=== PATIENT | male | born 1980 | race Caucasian/White ===

== ENCOUNTER → 2017-02-18 | Outpatient (CLI) | payer BC ==
--- NOTE | 2017-02-18 12:55 | XR ---
EXAMINATION TYPE: XR abdomen 1V DATE OF EXAM: 02/18/2017 COMPARISON: NONE HISTORY: Pain TECHNIQUE: One view abdominal series FINDINGS: The osseous structures are intact. The bowel gas pattern is nonspecific. Calcifications in the pelvi s appear to be vascular. Retained fecal debris throughout the colon. IMPRESSION: 1. Nonspecific abdomen. Correlate for constipation.
[2017-02-18 13:04] LABS: Basophils # (A) 0.1 k/uL (0-0.2); Basophils % (A) 1 %; CH 29.7; CHCM 32.9; Eosinophils # (A) 0.1 k/uL (0-0.7); Eosinophils % (A) 3 %; HCT 42.1 % (39.0-53.0); HDW 2.44; HGB 13.9 gm/dL (13.0-17.5); Luc # (Auto) 0.11; Luc % (Auto) 3; Lymphocytes # (A) 1.8 k/uL (1.0-4.8); Lymphocytes % (A) 39 %; MCH 29.9 pg (25.0-35.0); MCHC 32.9 g/dL (31.0-37.0); MCV 90.7 fL (80.0-100.0); Mean Platelet Volume 7.4; Monocytes # (A) 0.3 k/uL (0-1.0); Monocytes % (A) 6 %; Neutrophils # (A) 2.2 k/uL (1.3-7.7); Neutrophils % (A) 48 %; RBC 4.65 m/uL (4.30-5.90); RDW 13.1 % (11.5-15.5); WBC 4.5 k/uL (3.8-10.6)
[2017-02-18 13:56] LABS: ALT 38 U/L (21-72); AST 22 U/L (17-59); Alkaline Phosphatase 54 U/L (38-126); Anion Gap 8 mmol/L; Blood Urea Nitrogen 10 mg/dL (9-20); C Reactive Protein <5.0 mg/L (<10.0); Calcium 9.3 mg/dL (8.4-10.2); Carbon Dioxide 27 mmol/L (22-30); Chloride 105 mmol/L (98-107); Glucose 93 mg/dL (74-99); Non-African American GFR(MDRD) >60 (>60 ml/min/1.73 sqM); Potassium 4.2 mmol/L (3.5-5.1); Sodium 140 mmol/L (137-145); Total Bilirubin 0.6 mg/dL (0.2-1.3); Total Protein 6.8 g/dL (6.3-8.2)
== END ==
LOC: LABWHC1 12:25
PROVIDERS: ATTEND Family Medicine
DX: R10.32 Left lower quadrant pain (principal); R41.9 Unspecified symptoms and signs involving cognitive functions and awareness
CPT/HCPCS: 36415; 74000; 80053; 82306; 84443; 85025; 86140

== ENCOUNTER 2018-05-14 16:28 | Emergency (ER) | payer BC, OTHER ==
[2018-05-14 16:43] VITALS: BP 137/81; PULSE 95; RESP 18; TEMP 99
--- NOTE | 2018-05-14 17:09 | ED ---
General Adult HPI - General Chief complaint: Extremity Injury, Lower Stated complaint: knee injury-[facility] Time Seen by Provider: 05/14/18 16:58 Source: patient, RN notes reviewed Mode of arrival: ambulatory Limitations: no limitations - History of Present Illness Initial comments: 37-year-old male presents to the emergency department for a chief complaint of right knee pain. Patient states he was kneeling on the knee to look under his car and felt a tingling sensation. When he looked he states there is significant swelling noted to the knee. Patient became concerned and presented to the emergency department. He denies noticing any pain prior to this. He denies any fevers or chills. He denies any pain with movement of the knee or ambulate on the knee. Patient has no other complaints at this time including shortness of breath, chest pain, abdominal pain, nausea or vomiting, headache, or visual changes. - Related Data Home Medications Medication Instructions Recorded Confirmed ALPRAZolam [Xanax] 0.25 mg PO DAILY PRN 05/14/18 05/14/18 Ascorbic Acid [Vitamin C] 1,000 mg PO DAILY 05/14/18 05/14/18 Cholecalciferol [Vitamin D3] 1,000 unit PO DAILY 05/14/18 05/14/18 Multivitamin/Iron/Folic Acid 1 tab PO DAILY 05/14/18 05/14/18 [Centrum Adults Tablet] Allergies Allergy/AdvReac Type Severity Reaction Status Date / Time No Known Allergies Allergy Verified 05/14/18 17:29 Review of Systems ROS Statement: Those systems with pertinent positive or pertinent negative responses have been documented in the HPI. ROS Other: All systems not noted in ROS Statement are negative. Past Medical History Past Medical History: No Reported History History of Any Multi-Drug Resistant Organisms: None Reported Past Surgical History: Hernia Repair Past Psychological History: No Psychological Hx Reported Smoking Status: Never smoker Past Alcohol Use History: None Reported Past Drug Use History: None Reported General Exam Limitations: no limitations General appearance: alert, in no apparent distress Head exam: Present: atraumatic, normocephalic, normal inspection Eye exam: Present: normal appearance, PERRL, EOMI. Absent: scleral icterus, conjunctival injection, periorbital swelling ENT exam: Present: normal exam, mucous membranes moist Neck exam: Present: normal inspection, full ROM. Absent: tenderness, meningismus, lymphadenopathy Respiratory exam: Present: normal lung sounds bilaterally. Absent: respiratory distress, wheezes, rales, rhonchi, stridor Cardiovascular Exam: Present: regular rate, normal rhythm, normal heart sounds. Absent: systolic murmur, diastolic murmur, rubs, gallop, clicks Extremities exam: Present: full ROM (Full range of motion of the right knee.), normal capillary refill (Refill less than 2 seconds in the right lower extremity.), joint swelling (Patient does have moderate amount of prepatellar edema. No erythema or evidence of infection noted. No increased warmth.). Absent: tenderness (No significant tenderness noted of the right knee.), calf tenderness (No edema of the calf. No erythema of the calf. Negative Homans sign.) Course Vital Signs 05/14/18 16:41 Temperature 99 F Pulse Rate 95 Respiratory 18 Rate Blood Pressure 137/81 O2 Sat by Pulse 96 Oximetry Medical Decision Making - Medical Decision Making 37-year-old male presents to the emergency department for a chief complaint of right knee pain. 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 Patient noticed swelling and continued to the emergency department. No erythema noted. No fevers or chills full range motion of the right knee. It is not tender. No evidence of infection.. X-ray of the right knee shows soft tissue swelling anterior to the patella that could relate patellar bursitis, no fracture seen or evidence of joint effusion. This is consistent with clinical suspicion. At this time Huang wrap was applied tightly and patient will follow up with primary care. I did discuss returning if he notices any erythema, increased work, or evidence of infection which she agrees to do. Otherwise she will take Motrin and Tylenol for pain. Disposition Clinical Impression: Prepatellar bursitis Disposition: HOME SELF-CARE Condition: Good Instructions (If sedation given, give patient instructions): Knee Bursitis (ED) Additional Instructions: Please use Huang wrap throughout the day. Do not use Huang wrap at night. Follow up with primary care in 1-2 days. Take Motrin or Tylenol for pain. Monitor for any redness, swelling, worsening pain and return here to the emergency Department if this occurs or any other worsening symptoms. Is patient prescribed a controlled substance at d/c from ED?: No Referrals: Elian Espana MD [Primary Care Provider] - 1-2 days Time of Disposition: 18:12
--- NOTE | 2018-05-14 18:00 | XR ---
Right knee 3 views. History pain. Comparison none. FINDINGS: There is soft tissue swelling anterior to the patella. There is no sign of a joint effusion. Joint sp aces are fairly normal. I see no fracture. IMPRESSION: Soft tissue swelling anterior to the patella could relate to patellar bursitis. No fracture seen. No sign of joint effusion.
== END 2018-05-14 18:48 | disposition home or self-care (01) ==
LOC: EC 16:28
DX: M70.41 Prepatellar bursitis, right knee (principal); Y93.89 Activity, other specified
CPT/HCPCS: 99283

== ENCOUNTER → 2019-03-22 | Outpatient (CLI) | payer BC ==
--- NOTE | 2019-03-22 08:08 | US ---
EXAMINATION TYPE: US abdomen complete DATE OF EXAM: 03/22/2019 COMPARISON: NONE CLINICAL HISTORY: R10.13 epigastric pain. RUQ pain, right flank pain for 1.5 weeks EXAM MEASUREMENTS: Liver Length: 15.9 cm Gallbladder Wall: 0.3 cm CBD: 0.4 cm Spleen: 11.4 cm Right Kidney: 10.8 x 4.5 x 5.4 cm Left Kidney: 10.9 x 6.3 x 4.5 cm Pancreas: Obscured by bowel gas Liver: appears wnl Gallbladder: no evidence of stones Evidence for sonographic Roldan's sign: no CBD: appears wnl Spleen: wnl Right Kidney: no evidence of hydronephrosis or mass Left Kidney: no evidence of hydronephrosis or mass Upper IVC: wnl Abd Aorta: wnl The liver is homogenous. The intrahepatic portion of the IVC and proximal abdominal aorta are within normal limits. There is no evidence of cholelithiasis. Common bile duct is unremarkable. Pancreas is obscured. The spleen is unremarkable. Kidneys are symmetric and free of hydronephrosis. No renal lesions are seen. IMPRESSION: No sonographic evidence of cholelithiasis nor acute cholecystitis. Unremarkable abdominal ultrasound other than obscuration of the pancreas by overlying bowel gas.
== END | disposition home or self-care (01) ==
LOC: RADUSWWP 07:33
PROVIDERS: ATTEND Family Medicine
DX: R10.13 Epigastric pain (principal)
CPT/HCPCS: 76700

== ENCOUNTER 2020-05-29 09:26 | Emergency (ER) | payer BC, OTHER ==
[2020-05-29 09:37] VITALS: BP 133/82; RESP 18; TEMP 98.1
--- NOTE | 2020-05-29 09:56 | ED ---
General Adult HPI - General Chief complaint: Recheck/Abnormal Lab/Rx Stated complaint: nausea/spitting up blood Time Seen by Provider: 05/29/20 09:38 Source: patient Mode of arrival: ambulatory Limitations: no limitations - History of Present Illness Initial comments: Dictation was produced using [employer] dictation software. please excuse any grammatical, word or spelling errors. This patient was cared for during a federal and state declared state of emergency secondary to Covid 19 Chief Complaint: 40-year-old male presents after spitting up blood History of Present Illness: Is a 40-year-old male he states that today he had episode where he was spitting up blood. 2 days ago he felt like he was having some mild nausea. Patient is opaque complains. Patient recently had cyst removal over his scalp. Called the anesthesiologist and was told that he did not have endotracheal intubation. Patient has no complaints at this time. States that this morning he had a piece of toast. [place] like he wanted to spit. Then he spit up bright red blood. Denies any dental pain. No sore throat. A sensation of esophageal foreign body. The ROS documented in this emergency department record has been reviewed and confirmed by me. Those systems with pertinent positive or negative responses have been documented in the HPI. All other systems are other negative and/or noncontributory. PHYSICAL EXAM: General Impression: Alert and oriented x3, not in acute distress HEENT: Normocephalic atraumatic, extra-ocular movements intact, pupils equal and reactive to light bilaterally, mucous membranes moist, no dental abnormalities, oropharynx is unremarkable Cardiovascular: Heart regular rate and rhythm Chest: Able to complete full sentences, no retractions, no tachypnea Abdomen: abdomen soft, non-tender, non-distended, no organomegaly Musculoskeletal: Pulses present and equal in all extremities, no peripheral edema Motor: no focal deficits noted Neurological: CN II-XII grossly intact, no focal motor or sensory deficits noted Skin: Intact with no visualized rashes Psych: Normal affect and mood ED course: 40-year-old male presents with chief complaint of spitting up blood. He has no other complaints at this time. Patient has no high-risk features present on any blood thinners. He has no other complaints at this time. States that he spit up a couple times prior to coming to the emergency department after the initial episode with no blood. Patient has not been coughing. It's more likely that patient's symptoms are secondary to hematemesis instead of hemoptysis. Laboratory evaluation obtained showing no acute processes. Hemoglobin stable. Chest and abdominal x-ray was obtained showing COPD nonspecific abdomen. Patient was observed in the emergency department for approximately 1 hour 30 minutes with no acute processes. At this point patient clinically stable for discharge. With her primary discussed. He is advised follow-up with his primary care physician. EKG interpretation: Ventricular rate 106, sinus tachycardia, MA interval 176, QRS 92, QTc 446. No MA prolongation, no QTC prolongation, no ST or T-wave changes noted. Overall, this EKG is unremarkable - Related Data Home Medications Medication Instructions Recorded Confirmed Ascorbic Acid [Vitamin C] 1,000 mg PO DAILY 05/14/18 05/29/20 Cholecalciferol [Vitamin D3] 1,000 unit PO DAILY 05/14/18 05/29/20 ALPRAZolam [Xanax] 1 mg PO BID PRN 05/29/20 05/29/20 Ibuprofen [Motrin Ib] 400 mg PO Q8H PRN 05/29/20 05/29/20 Allergies Allergy/AdvReac Type Severity Reaction Status Date / Time No Known Allergies Allergy Verified 05/29/20 10:21 Review of Systems ROS Statement: Those systems with pertinent positive or pertinent negative responses have been documented in the HPI. ROS Other: All systems not noted in ROS Statement are negative. Past Medical History Past Medical History: No Reported History History of Any Multi-Drug Resistant Organisms: None Reported Past Surgical History: Hernia Repair Additional Past Surgical History / Comment(s): cyst removed Past Psychological History: No Psychological Hx Reported Smoking Status: Never smoker Past Alcohol Use History: None Reported Past Drug Use History: None Reported General Exam Limitations: no limitations Course Vital Signs 05/29/20 09:34 Temperature 98.1 F Pulse Rate 112 H Respiratory 18 Rate Blood Pressure 133/82 O2 Sat by Pulse 97 Oximetry Medical Decision Making - Lab Data Result diagrams: 05/29/20 10:03 05/29/20 10:03 Lab Results 05/29/20 05/29/20 05/29/20 Range/Units 10:03 10:03 10:03 WBC 6.5 (3.8-10.6) k/uL RBC 5.00 (4.30-5.90) m/uL Hgb 15.6 (13.0-17.5) gm/dL Hct 45.4 (39.0-53.0) % MCV 91.0 (80.0-100.0) fL MCH 31.2 (25.0-35.0) pg MCHC 34.3 (31.0-37.0) g/dL RDW 11.8 (11.5-15.5) % Plt Count 248 (150-450) k/uL MPV 7.4 Neutrophils % 69 % Lymphocytes % 24 % Monocytes % 5 % Eosinophils % 1 % Basophils % 1 % Neutrophils # 4.5 (1.3-7.7) k/uL Lymphocytes # 1.6 (1.0-4.8) k/uL Monocytes # 0.3 (0-1.0) k/uL Eosinophils # 0.1 (0-0.7) k/uL Basophils # 0.1 (0-0.2) k/uL PT 10.0 (9.0-12.0) sec INR 0.9 (<1.2) APTT 23.3 (22.0-30.0) sec Sodium 140 (137-145) mmol/L Potassium 3.7 (3.5-5.1) mmol/L Chloride 101 (98-107) mmol/L Carbon Dioxide 26 (22-30) mmol/L Anion Gap 13 mmol/L BUN 12 (9-20) mg/dL Creatinine 0.91 (0.66-1.25) mg/dL Est GFR (CKD-EPI)AfAm >90 (>60 ml/min/1.73 sqM) Est GFR (CKD-EPI)NonAf >90 (>60 ml/min/1.73 sqM) Glucose 125 H (74-99) mg/dL Calcium 9.9 (8.4-10.2) mg/dL Total Bilirubin 0.9 (0.2-1.3) mg/dL AST 24 (17-59) U/L ALT 23 (4-49) U/L Alkaline Phosphatase 59 (38-126) U/L Total Protein 7.7 (6.3-8.2) g/dL Albumin 4.8 (3.5-5.0) g/dL Disposition Clinical Impression: Hematemesis of unknown cause Disposition: HOME SELF-CARE Condition: Good Instructions (If sedation given, give patient instructions): Gastrointestinal Bleeding (ED) Additional Instructions: Please return to the emergency department with any recurrence of coughing or spitting of blood. Otherwise follow-up with your primary care physician. Is patient prescribed a controlled substance at d/c from ED?: No Referrals: Elian Espana MD [Primary Care Provider] - 1-2 days Time of Disposition: 10:45
[2020-05-29 10:22] LABS: Basophils # (A) 0.1 k/uL (0-0.2); Basophils % (A) 1 %; Eosinophils # (A) 0.1 k/uL (0-0.7); Eosinophils % (A) 1 %; HCT 45.4 % (39.0-53.0); HGB 15.6 gm/dL (13.0-17.5); Lymphocytes # (A) 1.6 k/uL (1.0-4.8); Lymphocytes % (A) 24 %; MCH 31.2 pg (25.0-35.0); MCHC 34.3 g/dL (31.0-37.0); Mean Platelet Volume 7.4; Monocytes # (A) 0.3 k/uL (0-1.0); Monocytes % (A) 5 %; Neutrophils # (A) 4.5 k/uL (1.3-7.7); Neutrophils % (A) 69 %; Platelet Count 248 k/uL (150-450); RDW 11.8 % (11.5-15.5); WBC 6.5 k/uL (3.8-10.6)
[2020-05-29 10:31] LABS: INR 0.9 (<1.2); Partial Thromboplastin Time 23.3 sec (22.0-30.0)
[2020-05-29 10:39] LABS: ALT 23 U/L (4-49); AST 24 U/L (17-59); African American GFR (CKD) >90 (>60 ml/min/1.73 sqM); Albumin 4.8 g/dL (3.5-5.0); Alkaline Phosphatase 59 U/L (38-126); Anion Gap 13 mmol/L; Blood Urea Nitrogen 12 mg/dL (9-20); Calcium 9.9 mg/dL (8.4-10.2); Carbon Dioxide 26 mmol/L (22-30); Chloride 101 mmol/L (98-107); Glucose 125 mg/dL (74-99); Non-African American GFR(CKD) >90 (>60 ml/min/1.73 sqM); Potassium 3.7 mmol/L (3.5-5.1); Sodium 140 mmol/L (137-145); Total Bilirubin 0.9 mg/dL (0.2-1.3); Total Protein 7.7 g/dL (6.3-8.2)
--- NOTE | 2020-05-29 10:41 | XR ---
EXAMINATION TYPE: XR abdomen acute w cxr DATE OF EXAM: 05/29/2020 COMPARISON: NONE HISTORY: Hemoptysis TECHNIQUE: Supine, upright, and left side down lateral decubitus views of the abdomen are obtained. FINDINGS: Hyperinflation suggests COPD. Heart size normal. No sizable consolidation or pleural effusi on. No overt failure. Bowel gas pattern nonspecific with no obstruction. Numerous calcifications in the pelvis are nonspeci fic but likely vascular. Osseous structures intact. IMPRESSION: 1. COPD. 2. Nonspecific abdomen
[2020-05-29] MEDS ORDERED: ONDANSETRON 4 MG ODT STARTER PACK 2 TAB BTL PO STA (10:48)
[2020-05-29 10:58] VITALS: PULSE 94
== END 2020-05-29 10:58 | disposition home or self-care (01) ==
LOC: EC 09:26
DX: K92.0 Hematemesis (principal); R11.0 Nausea; J44.9 Chronic obstructive pulmonary disease, unspecified; Z79.1 Long term (current) use of non-steroidal anti-inflammatories (NSAID); Z79.899 Other long term (current) drug therapy; Z98.890 Other specified postprocedural states
CPT/HCPCS: 36415; 93005; 80053; 85025; 85610; 85730; 74022; S0119; 99284